=== PATIENT | male | born 1935 | race Caucasian/White ===

== ENCOUNTER 2017-01-01 06:17 | Inpatient (IN) ==
--- NOTE | 2016-12-31 20:14 | Discharge Summary ---
<MagraulMayra L - Last Filed: 12/31/16 20:12> Date of Encounter: 12/31/16 - Discharge Diagnosis (1) Shoulder pain, right Priority: Primary Status: Acute Qualifiers: Chronicity: chronic Qualified Code(s): M25.511 - Pain in right shoulder; G89.29 - Other chronic pain - Discharge Medications Home Medications: Aspirin 81 mg PO DAILY 04/06/16 [History] Levothyroxine [Synthroid] 25 mcg PO DAILY 04/06/16 [History] Pantoprazole Sodium [Protonix] 40 mg PO DAILY 04/06/16 [History] OxyCODONE Immed Rel [Roxicodone 5 MG] 5 - 10 mg PO Q6HR PRN #40 tablet 12/31/16 [Rx] Fluticasone Propionate Nasal [Flonase] 1 spr NS DAILY PRN 01/01/17 [History] Fluticasone Propionate [Flovent Hfa] 1 puff IH BID PRN 01/01/17 [History] Guaifenesin [Mucinex] 600 mg PO Q12H PRN 01/01/17 [History] Allergies/Adverse Reactions: Allergies No Known Allergies Allergy (Verified 01/01/17 07:37) Primary care physician: Laz Guadalupe - Patient Status Disposition: Home, Self-Care Condition: Good - Discharge Instructions Follow Up With: Yomaira Lockwood MD [Partnered Physician] - 01/09/17 10:10 am Kaleb Valle DO [Primary Care Provider] - - Hospital Course Hospital course: Mr. Dickey is a 81 year old male - Time Spent with Patient Total time spent providing and/or coordinating discharge services: <Bradford Kitchen - Last Filed: 01/02/17 06:30> Date of Encounter: 01/02/17 Time of Encounter: 06:30 - Discharge Diagnosis (1) Shoulder pain, right Priority: Primary Status: Acute Qualifiers: Chronicity: chronic Qualified Code(s): M25.511 - Pain in right shoulder; G89.29 - Other chronic pain (2) Hypertension Priority: Secondary Status: Chronic Qualifiers: Hypertension type: unspecified secondary hypertension Qualified Code(s): I15.9 - Secondary hypertension, unspecified; I15 - Secondary hypertension (3) Hyperlipidemia Priority: Secondary Status: Chronic Qualifiers: Hyperlipidemia type: unspecified Qualified Code(s): E78.5 - Hyperlipidemia , unspecified (4) COPD (chronic obstructive pulmonary disease) Priority: Secondary Status: Chronic Qualifiers: COPD type: unspecified COPD Qualified Code(s): J44.9 - Chronic obstructive pulmonary disease, unspecified (5) Thyroid disease Priority: Secondary Status: Chronic Primary care physician: Laz Guadalupe - Patient Status Functional capacity at discharge: independent ambulation Overall status at discharge: patient is progressing back to baseline - Hospital Course Hospital course: Mr. Dickey is a 81 year old male The patient had an uneventful postoperative course. They received antibiotics and physical therapy and were discharged in stable condition. There will follow -up in the office in 2 weeks. - Time Spent with Patient Total time spent providing and/or coordinating discharge services:
--- NOTE | 2017-01-01 06:36 | History & Physical Report ---
Date of Encounter: 01/01/17 Time of Encounter: 06:36 24 Hour HP Update - Instructions Instructions: If the History and Physical is less than 30 days old and was completed prior to A.M. admission and or procedure and has NOT been updated on calendar day of procedure please complete this update prior to performing procedure. - Update Patient reports changes in Medical Condition: No Changes in assessment/condition: No Changes in Medication: No Preop tests/diagnostics Reviewed: Yes Surgery Remains Indicated: Yes Consent for Planned Operative Procedure(s) Verified: Yes - Pre-Operative Checklist Preoperative Checklist Indicated: No Prophylactic Antibiotic Ordered: Yes Is VTE Prophylaxis Indicated?: Yes
[2017-01-01] MEDS ORDERED: Albuterol 2.5 MG/3 ML NEBULIZER IH ONE (06:40)
[2017-01-01] MEDS ORDERED: CeFAZolin Pre 2,000 MG/100 ML 2,000 MG/100 ML BAG IVPB ONE (06:40)
[2017-01-01] MEDS ORDERED: Lidocaine 1% 20 ML MDV ID ONE (06:40)
[2017-01-01] MEDS ORDERED: Ringers Solution, Lactated 1,000 ML IVC SCH (06:45)
[2017-01-01] MEDS ORDERED: Ondansetron 4 MG/2 ML VIAL ONE (07:04)
[2017-01-01] MEDS ORDERED: Lidocaine -MPF 2% 2 ML VIAL ONE (07:04)
[2017-01-01] MEDS ORDERED: *HR* Succinylcholine 200 MG/10 ML VIAL IVP ONE (07:04)
[2017-01-01] MEDS ORDERED: *HR* FentaNYL (PF) 100 MCG/2 ML VIAL ONE (07:04)
[2017-01-01] MEDS ORDERED: *HR* Phenylephrine 10 MG/ML VIAL ONE (07:04)
[2017-01-01] MEDS ORDERED: *HR* Midazolam HCl 2 MG/2 ML VIAL ONE (07:04)
[2017-01-01] MEDS ORDERED: Lidocaine -MPF 4% 5 ML AMPUL ONE (07:04)
[2017-01-01] MEDS ORDERED: Dexamethasone 4 MG/ML VIAL ONE (07:04)
[2017-01-01] MEDS ORDERED: *HR* Propofol 200 MG/20 ML VIAL IVP ONE (07:05)
--- NOTE | 2017-01-01 07:08 | Anesthesia Evaluation PreOp ---
Date of Encounter: 01/01/17 Time of Encounter: 07:00 - Past History Planned Operation: Rt Total Shoulder Revision Cardiac History: HTN, Hyperlipidemia Pulmonary History: COPD KENO ATTENDANT History: Denies Any Significant HX Other Medical History: Thyroid, GERD Anesthesia History: No Prior Anesthetic Complications Alcohol Use: none Drug use: none Medications and Allergies Aspirin 81 mg PO DAILY 04/06/16 [History] Levothyroxine [Synthroid] 25 mcg PO DAILY 04/06/16 [History] Pantoprazole Sodium [Protonix] 40 mg PO DAILY 04/06/16 [History] Ipratropium/Albuterol Sulfate [Combivent Respimat Inhal [place]] 2 gm IH Q4H 10/09 [History] OxyCODONE Immed Rel [Roxicodone 5 MG] 5 - 10 mg PO Q6HR PRN #40 tablet 12/31/16 [Rx] Allergies No Known Allergies Allergy (Verified 10/09/16 09:35) - Meds/Allergy Pre-op Review Medications Reviewed: Yes Allergies Reviewed: Yes Beta Blockers on Current Med List: No Anesthesia Results - Labs Laboratory Tests 09/30/15 12/18/16 12/18/16 15:23 09:54 09:54 Hgb 12.1 L Hct 39.4 Plt Count 156 Sodium 140 Potassium 4.3 BUN 12 POC Creatinine 0.90 - Imaging EKG: report reviewed (SR Rt BBB) Anesthesia Exam O2 Sat Height 1.83 m Height 1.83 m Height 1.83 m Weight 72.575 kg Weight 72.575 kg Weight 72.575 kg O2 Sat by Pulse Oximetry 99 O2 Sat by Pulse Oximetry 99 O2 Sat by Pulse Oximetry 99 Vital Signs Temp Pulse Resp BP Pulse Ox 97.8 F 73 20 141/79 99 01/01/17 06:41 01/01/17 06:41 01/01/17 06:41 01/01/17 06:41 01/01/17 06:41 Height: 6'0 Weight: 160 lbs NPO (# of Hours): MN Pain Scale: 0 - HEENT Pupil (Motor): Pupils equal, EOMI Mallampati: II Denture Type: Upper: Complete Oral Opening: Less than or equal to 3 - KENO ATTENDANT LOC: Oriented KENO ATTENDANT Motor: Normal RUE, Normal LUE, Normal RLE, Normal LLE, Normal Face KENO ATTENDANT Sensory: Normal: RUE, LUE, RLE, LLE, Face - Cardiac Rhythm: Regular Murmur: None JVD: No Carotid Bruit: No - Pulmonary Breath Sounds: bilateral Clear Respiratory Effort: Symmetrical Anesthesia Assess/Plan ASA Score: 3 (COPD HTN) Modified Lizeth Scale for Level of Consciousness: Cooperative, oriented, and tranquil Anesthetic Plan: General, Regional Monitoring Plan: Standard Monitors Recovery Plan: PACU (Discussed GA and RA, agrees to proceed)
[2017-01-01] MEDS ORDERED: Bupivacaine/Clonidine Syringe 1 EACH SYRINGE ONE (07:22)
[2017-01-01] MEDS ORDERED: *HR* Labetalol 100 MG/20 ML MDV IVP PRN (07:22)
[2017-01-01] MEDS ORDERED: *HR* HYDROmorphone (PF) 1 MG/ML SYRINGE IVP PRN ×2 (07:22→10:10)
[2017-01-01] MEDS ORDERED: *HR* Promethazine 25 MG/ML VIAL IVP PRN (07:22)
[2017-01-01] MEDS ORDERED: ROPIVACAINE HCL/PF 0.5% 30 ML VIAL ONE (07:23)
[2017-01-01] MEDS ORDERED: Tetracaine/PF 20 MG/2 ML AMPUL SPINA ONE (07:24)
[2017-01-01] MEDS ORDERED: Famotidine 20 MG/2 ML VIAL ONE (07:24)
--- NOTE | 2017-01-01 07:48 | Anesthesia Procedures ---
Date of Encounter: 01/01/17 Time of Encounter: 07:30 Procedures: Anesthesia - Nerve Block Procedure Date: 01/01/17 Time: 07:30 Allergies/Adv Reactions: NKDA Pre-op Diagnosis: RIGHT SHOULDER ARTHRITIS Surgical Procedure: RIGHT TOTAL SHOULDER Checklist: Correct Patient Identifier, Correct procedure, History checked Correct side: Right Blood Thinner: No Monitor Applied: EKG, BP, Pulse Oximetry Supplemental Oxygen via Nasal Cannula (L/min): 2 Sedation: Versed (mg): 1 Sedation: Fentanyl (mcg): 50 Indication: Post Op Analgesia Pre-op Neuro Deficits: No Block Type: Supraclavicular (SUPERFICIAL CERVICAL PLEXUS + INTERCOSTAL BRACHIAL ) Catheter placed: No Sterile Technique: Yes Ultrasound used: Yes Anatomy identified: Yes Visual spread of Local: Yes Neuro Stimulation: Yes Nerve Stimulator Range: 0.2 - 0.4 mA Blood on Needle Aspiration: No Smooth Injection of Local: Yes Pain with Injection of Local: No Prep: Chlorhexadine Needle: 22 x 50 mm Stimuplex Local: 0.25% Bupivicaine w/Clonidine 20 mcg/cc Volume (cc): 40 Number of Attempts: 1 Complications: None/effective block Vitals: Vital Signs - Last 8 Hours Temp Pulse Resp BP Pulse Ox 01/01/17 07:37 80 16 142/89 94 L 01/01/17 07:25 78 16 140/78 96 01/01/17 06:48 97.8 F 73 18 141/79 99 01/01/17 06:41 97.8 F 73 20 141/79 99 Intake and Output 12/31/16 12/31/16 01/01/17 15:59 23:59 07:59 Other: Weight 72.575 kg Patient Weight 01/01/17 23:59 Weight 72.575 kg Comments: PER DR. BLAIR REQUEST
--- NOTE | 2017-01-01 08:57 | Orthopedic Operative Note ---
Date of procedure: 01/01/17 Pre-op diagnosis: Painful right reverse total shoulder Post-op diagnosis: same Procedure: Procedure: Right revision Total Shoulder Replacment Reverse, Estimated blood loss: 100 cc Hardware:Arthrex medium glenoid baseplate, 2 4.5 screws. 1 6.5 screw, 39 lateral glenosphere, 39 central metaphysis, 6 constrained Madison Exam Under anesthesia: Normal motion and no instability Procedural Notes: Patient with scapular notching Madison disease. Operative procedure: The patient was brought to the operating room and placed on the operating room table. After general anesthesia was administered the operative shoulder was examined. Findings were noted. The patient was placed in the modified beachchair position. All pressure points were padded appropriately. And the head was stabilized in the neutral position. The operative extremity was prepped and draped in the sterile surgical fashion. The patient received IV antibiotics prior to skin incision. A standard deltopectoral approach was made to the operative shoulder. Incision was made through the old incision through the skin and subcutaneous tissue,hemo stasis was obtained with Bovie cautery. Using careful blunt dissection the cephalic vein was identified and mobilized medially. The deltopectoral interval was developed and the clavipectoral fascia was incised. The patient had no subscapularis, soft tissue was removed cultures were obtained. Shoulder was dislocated patient obvious poly-wear. The metaphyseal component was removed from the humeral side. Evaluation of the humeral stem revealed it to be well fixed. Attention then turned to the glenoid component. The glenosphere was removed followed by the screws followed by the baseplate. The position of the baseplate was lowered central pin was placed followed by the reamers. A medium glenoid baseplate was seated and secured with one 6.5 locking screw and 24.5 locking screws. DBX was placed behind the baseplate in the area of previous central screw fixation. The 39 lateralized sphere was seated and secured Trial reduction found excellent motion and stability with a 6 constrained Madison trial poly-was removed real Madison was seated and secured. The deep tissue was irrigated with pulse irrigation. The deltopectoral interval was closed with a running #1 PDS suture, subcutaneous tissue was irrigated and closed with 0 PDS suture, the skin was closed with Dermabond. The patient was placed in a sterile dressing, abduction brace and extubated. The patient was then transferred to the recovery room in stable condition. Anesthesia: GETA Surgeon: Bradford Kitchen Condition: stable Disposition: PACU
[2017-01-01 09:27] LABS: Hematocrit 34.9 % (37.5-50.1); Hemoglobin 10.7 g/dL (12.9-16.9)
[2017-01-01] MEDS ORDERED: Fluticasone Propionate Nasal 50 MCG/SPRAY BOTTLE NS PRN (10:10)
[2017-01-01] MEDS ORDERED: Albuterol Neb 1.25 MG/3 ML VIAL IH ONE (10:10)
[2017-01-01] MEDS ORDERED: Acetaminophen 325 MG TABLET PO PRN (10:10)
[2017-01-01] MEDS ORDERED: Temazepam 15 MG CAPSULE PO PRN (10:10)
[2017-01-01] MEDS ORDERED: *HR* OxyCODONE Immed Rel 5 MG TABLET PO PRN ×2 (10:10)
[2017-01-01] MEDS ORDERED: Beclomethasone 80mcg MDI IH SCH (10:10)
[2017-01-01] MEDS ORDERED: Ondansetron 4 MG/2 ML VIAL IVP PRN (10:10)
[2017-01-01] MEDS ORDERED: Naloxone 0.4 MG/ML INJ IVP PRN (10:10)
[2017-01-01] MEDS ORDERED: Sennosides 8.6 MG TABLET PO PRN (10:10)
[2017-01-01] MEDS ORDERED: MOM Conc 10 ML UD.LIQ PO PRN (10:10)
--- NOTE | 2017-01-01 10:10 | Anesthesia Evaluation Post Op ---
Date of Encounter: 01/01/17 Time of Encounter: 09:30 - Vital Signs Vital Signs: Vital Signs/O2 Sat/Glucose, Most Current Temp Pulse Resp BP Pulse Ox 01/01/17 09:38 98.3 F 82 16 128/78 98 01/01/17 09:28 72 16 123/69 97 01/01/17 09:18 71 18 116/72 98 01/01/17 09:13 70 16 102/67 100 01/01/17 09:08 98.0 F 67 16 121/69 100 01/01/17 08:00 71 16 117/69 100 01/01/17 07:49 69 16 130/72 99 01/01/17 07:37 80 16 142/89 94 L 01/01/17 07:25 78 16 140/78 96 01/01/17 06:48 97.8 F 73 18 141/79 99 01/01/17 06:41 97.8 F 73 20 141/79 99 - Lungs Lungs: Clear Ascult./Percussion - Airway Airway: Non-obstructed - Cardiovascular Regular Rate - Mental Status Mental Status: Alert & Oriented, Answers Appropriately - Pain Pain Scale: 0 - Nausea Vomiting Nausea Vomiting: Not Present - Hydration Hydration: Tolerates oral liquids - Discharge PostOp Status: Transfer Patient to floor
[2017-01-01] MEDS ORDERED: Beclomethasone 80mcg MDI IH PRN (10:42)
[2017-01-01] MEDS: Levothyroxine 25 MCG TABLET PO SCH (10:53)
[2017-01-01] MEDS: Aspirin 81 MG TAB.CHEW PO SCH (10:54)
[2017-01-01] MEDS: Ringers Solution, Lactated 1,000 ML IVC SCH (10:54)
[2017-01-01] MEDS: *HR* Enoxaparin 30 MG/0.3 ML SYRINGE SQ SCH (16:53)
[2017-01-01] MEDS: ceFAZolin 2,000 MG in D5% in Water 100 ML IVPB SCH (16:53)
[2017-01-01] MEDS ORDERED: *HR* Enoxaparin 30 MG/0.3 ML SYRINGE SQ SCH (18:00)
[2017-01-02] MEDS: ceFAZolin 2,000 MG in D5% in Water 100 ML IVPB SCH (00:15)
[2017-01-02] MEDS: Ringers Solution, Lactated 1,000 ML IVC SCH (02:32)
[2017-01-02 06:19] LABS: Hematocrit 38.3 % (37.5-50.1); Hemoglobin 11.7 g/dL (12.9-16.9)
[2017-01-02] MEDS: *HR* Enoxaparin 30 MG/0.3 ML SYRINGE SQ SCH (06:21)
--- NOTE | 2017-01-02 06:31 | Orthopedics Progress Note ---
Date of Encounter: 01/02/17 Time of Encounter: 06:31 - Assessment and Plan (1) Shoulder pain, right Current Visit: Yes Status: Acute Qualifiers: Chronicity: chronic Qualified Code(s): M25.511 - Pain in right shoulder; G89.29 - Other chronic pain (2) Hypertension Current Visit: Yes Status: Chronic Qualifiers: Hypertension type: unspecified secondary hypertension Qualified Code(s): I15.9 - Secondary hypertension, unspecified; I15 - Secondary hypertension (3) Hyperlipidemia Current Visit: Yes Status: Chronic Qualifiers: Hyperlipidemia type: unspecified Qualified Code(s): E78.5 - Hyperlipidemia , unspecified (4) COPD (chronic obstructive pulmonary disease) Current Visit: Yes Status: Chronic Qualifiers: COPD type: unspecified COPD Qualified Code(s): J44.9 - Chronic obstructive pulmonary disease, unspecified (5) Thyroid disease Current Visit: Yes Status: Chronic Subjective Interval history: Patient was seen this morning doing well without complaints. Afebrile vital signs stable. Operative extremity: Neurovascularly intact Dressing clean dry and intact Calves nontender Assessment and plan: Continue with postoperative care Hold therapy discharged today Objective Vital signs: Vital Signs Temp Pulse Resp BP Pulse Ox 01/02/17 03:50 98.2 F 72 17 123/72 01/02/17 00:13 98 F 75 17 129/74 98 01/01/17 19:47 97.9 F 74 16 125/74 95 01/01/17 15:09 97.8 F 84 16 104/68 95 01/01/17 14:54 80 16 106/65 96 01/01/17 13:03 97.5 F L 80 16 106/65 96 01/01/17 12:52 16 99 01/01/17 11:56 97.8 F 74 16 112/63 99 01/01/17 11:02 97.9 F 85 16 144/66 01/01/17 10:30 97.9 F 83 16 125/83 99 01/01/17 10:00 97.4 F L 82 16 125/78 99 01/01/17 09:38 98.3 F 82 16 128/78 98 01/01/17 09:28 72 16 123/69 97 01/01/17 09:18 71 18 116/72 98 01/01/17 09:13 70 16 102/67 100 01/01/17 09:08 98.0 F 67 16 121/69 100 01/01/17 08:00 71 16 117/69 100 01/01/17 07:49 69 16 130/72 99 01/01/17 07:37 80 16 142/89 94 L 01/01/17 07:25 78 16 140/78 96 01/01/17 06:48 97.8 F 73 18 141/79 99 01/01/17 06:41 97.8 F 73 20 141/79 99 Intake and Output 01/01/17 01/01/17 01/02/17 15:59 23:59 07:59 Intake Total 340 / 340 100 / 100 1100 / 1100 Output Total 1600 / 1600 600 / 600 475 / 475 Balance -1260 / -1260 -500 / -500 625 / 625 Intake: IV Fluids 100 / 100 100 / 100 1100 / 1100 Lactated Ringers 1,000 ML 1000 / 1000 @ 75 mls/hr IVC .[id number] BALTAZAR Rx#:[id number] Ancef 2,000 MG In 100 / 100 100 / 100 Dextrose 5% 100 ML @ 200 mls/hr IVPB Q8HR BALTAZAR Rx#: [id number] Ancef Premix 2,000 MG/100 100 / 100 ML 2,000 mg In 100 ml @ 200 mls/hr IVPB PREOP ONE Rx#:[id number] Oral 240 / 240 Output: Urine 1600 / 1600 600 / 600 475 / 475 Other: Meal Lunch Percent of Meal Consumed 100% - Labs CBC & BMP: 01/02/17 05:26 Labs: Abnormal lab results Hgb 11.7 g/dL (12.9-16.9) L 01/02/17 05:26 - VTE Documentation of Mechanical Device: Venous foot pump, device Consult Discharge Plan - Plan Referrals: Yomaira Lockwood MD [Partnered Physician] - 01/09/17 10:10 am Kaleb Valle DO [Primary Care Provider] -
[2017-01-02 07:22] VITALS: BP 134/71
[2017-01-02] MEDS: Levothyroxine 25 MCG TABLET PO SCH (09:29)
[2017-01-02] MEDS: Aspirin 81 MG TAB.CHEW PO SCH (09:29)
--- NOTE | 2017-01-02 15:30 | Electrocardiograph Report ---
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
== END 2017-01-02 10:32 | disposition home or self-care (01) | DRG 483 ==
LOC: SAMDAY 06:17 → 3NENU 10:05 → SUATTDRO 10:05
PROVIDERS: ADMIT Internal Medicine; ATTEND Internal Medicine

== ENCOUNTER 2019-10-07 21:50 | Inpatient (IN) ==
[2019-10-08] MEDS ORDERED: Naloxone 0.4 MG/ML INJ IVP PRN (00:46)
[2019-10-08 01:25] LABS: Basophils % 0.4 %; Hematocrit 38.1 % (37.5-50.1); Hemoglobin 12.5 g/dL (12.9-16.9); Immature Granulocytes % 0.3 % (0-4); Lymphocytes # 0.9 K/mcL (0.6-4.6); Lymphocytes % 12.5 %; Mean Corpuscular HGB Conc 32.8 g/dL (31.6-35.5); Mean Corpuscular Hemoglobin 31.6 pg (28.0-33.3); Mean Corpuscular Volume 96.5 fL (83.0-100.0); Mean Platelet Volume 10.4 fL (9.4-12.4); Monocytes % 14.2 %; Neutrophils # 5.2 K/mcL (1.6-8.9); Platelet Count 123 K/mcL (140-400); Red Blood Count 3.95 M/mcL (4.19-5.50); Red Cell Distribution Width 13.2 % (11.5-14.5); Segmented Neutrophils % 72.6 %; White Blood Count 7.1 K/mcL (4.3-11.1)
[2019-10-08 01:40] LABS: Phosphorous 2.4 mg/dL (2.7-4.5)
[2019-10-08 01:43] LABS: Alanine Aminotransferase 26 Units/L (7-52); Albumin 3.8 g/dL (3.5-5.7); Albumin/Globulin Ratio 1.4 (1.1-2.2); Alkaline Phosphatase 79 Units/L (34-104); Aspartate Amino Transferase 14 Units/L (13-39); BUN/Creatinine Ratio 24 (6-26); Bilirubin,Direct 0.4 mg/dL (0.0-0.2); Bilirubin,Indirect 0.8 mg/dL (0.0-1.0); Bilirubin,Total 1.2 mg/dL (0.3-1.0); Blood Urea Nitrogen 21 mg/dL (8-23); Calcium 8.6 mg/dL (8.6-10.3); Carbon Dioxide 28 mEq/L (23-29); Chloride 103 mEq/L (98-107); Globulin 2.7 g/dL (2.4-3.5); Glucose 151 mg/dL (70-105); Osmolality,Calculated 290 (280-300); Potassium 3.9 mEq/L (3.5-5.1); Sodium 137 mEq/L (136-145); Total Protein 6.5 g/dL (6.4-8.9); eGFR For African Americans > 60 (> 60); eGFR For Non-African Americans > 60 (> 60)
[2019-10-08 01:51] LABS: Troponin I 0.11 ng/mL (< 0.04)
[2019-10-08] MEDS ORDERED: Potassium Phosphate 44 MEQ in 0.9 % Sodium Chloride 250 ML IVPB ONE (01:53)
[2019-10-08] MEDS ORDERED: *HR* Metoprolol 5 MG/5 ML VIAL IVP PRN (02:00)
[2019-10-08 02:10] LABS: INR 1.5; Prothrombin Time 16.7 Seconds (9.4-12.1)
[2019-10-08] MEDS ORDERED: Fluticasone Propionate Nasal 50 MCG/SPRAY BOTTLE NS PRN (16:20)
[2019-10-08] MEDS: Apixaban 5 MG TABLET PO SCH (22:30)
[2019-10-09 02:03] LABS: Hematocrit 35.1 % (37.5-50.1); Hemoglobin 11.7 g/dL (12.9-16.9); Mean Corpuscular HGB Conc 33.3 g/dL (31.6-35.5); Mean Corpuscular Volume 95.9 fL (83.0-100.0); Mean Platelet Volume 10.5 fL (9.4-12.4); Platelet Count 117 K/mcL (140-400); Red Blood Count 3.66 M/mcL (4.19-5.50); White Blood Count 6.2 K/mcL (4.3-11.1)
[2019-10-09 02:23] LABS: BUN/Creatinine Ratio 24 (6-26); Blood Urea Nitrogen 15 mg/dL (8-23); Calcium 8.1 mg/dL (8.6-10.3); Carbon Dioxide 26 mEq/L (23-29); Chloride 107 mEq/L (98-107); Glucose 171 mg/dL (70-105); Osmolality,Calculated 293 (280-300); Potassium 3.6 mEq/L (3.5-5.1); Sodium 139 mEq/L (136-145); eGFR For African Americans > 60 (> 60); eGFR For Non-African Americans > 60 (> 60)
[2019-10-09 02:35] LABS: Thyroid Stimulating Hormone 0.885 mcIU/mL (0.340-5.600)
[2019-10-09] MEDS ORDERED: 0.9 % Sodium Chloride 500 ML IVC ONE (04:49)
[2019-10-09] MEDS: Tiotropium 18 MCG inhalation IH SCH (07:38)
[2019-10-09] MEDS ORDERED: NON-FORMULARY MEDICATION 1 EACH EACH (Umeclidinium Brm/Vilanterol Tr [Anoro Ellipta 62.5-2 IH SCH (09:00)
[2019-10-09] MEDS: Aspirin 81 MG TAB.CHEW PO SCH (09:17)
[2019-10-09] MEDS: Apixaban 5 MG TABLET PO SCH ×2 (09:18→22:34)
[2019-10-09] MEDS: Acetaminophen 325 MG TABLET PO PRN (17:42)
[2019-10-09] MEDS: Azithromycin 250 MG TABLET PO SCH (17:53)
[2019-10-09 18:00] LABS: Adenovirus Not Detected (Not Detect); Bordetella Pertussis Not Detected (Not Detect); Chlamydophila pneumoniae Not Detected (Not Detect); Coronavirus 229E Not Detected (Not Detect); Coronavirus HKU1 Not Detected (Not Detect); Coronavirus NL63 Not Detected (Not Detect); Coronavirus OC43 Not Detected (Not Detect); Human Metapneumovirus Not Detected (Not Detect); Human Rhinovirus/Enterovirus Not Detected (Not Detect); Influenza A Subtype 2009 H1 Not Detected (Not Detect); Influenza A Untypeable Not Detected (Not Detect); Influenza B Not Detected (Not Detect); Mycoplasma pneumoniae Not Detected (Not Detect); Parainfluenza Virus 1 Not Detected (Not Detect); Parainfluenza Virus 2 Not Detected (Not Detect); Parainfluenza Virus 3 Not Detected (Not Detect); Parainfluenza Virus 4 Not Detected (Not Detect); Respiratory Syncytial Virus Not Detected (Not Detect)
[2019-10-10 00:44] LABS: Bilirubin,Urine Small (Negative); Blood,Urine Negative (Negative); Clarity,Urine Clear (Clear); Color,Urine Dark Yellow (Yellow); Glucose,Urine (UA) 100 mg/dL (Normal); Ketones,Urine Negative (Negative); Leukocyte Esterase,Urine Trace (Negative); Nitrite,Urine Negative (Negative); Protein,Urine 100 mg/dL (Neg-Trace); Specific Gravity,Urine > 1.030 (1.010-1.025)
[2019-10-10 00:46] LABS: Bacteria,Urine None Seen per hpf (None-Few); Hyaline Casts,Urine Few per lpf (None-Few); RBC,Urine 0-3 per hpf (0-3); Squamous Epithelial Cell,Urine Many per lpf (None-Few)
[2019-10-10 01:13] LABS: Yeast,Urine Few per hpf (None Seen)
[2019-10-10 02:30] LABS: Adenovirus F 40/41 PCR Not detected (Not detect); Astrovirus PCR Not detected (Not detect); C.difficile Toxin A/B Gene PCR Not detected (Not detect); Campylobacter by PCR Not detected (Not detect); Cryptosporidium by PCR Not detected (Not detect); Cyclospora cayetanensis PCR Not detected (Not detect); E. coli O157 by PCR Not detected (Not detect); Entamoeba histolytica PCR Not detected (Not detect); Enteroaggregative E.coli(EAEC) Not detected (Not detect); Enteropathogenic E.coli(EPEC) Not detected (Not detect); Enterotoxigenic E.coli (ETEC) Not detected (Not detect); Giardia lamblia PCR Not detected (Not detect); Norovirus GI/GII PCR Not detected (Not detect); Plesiomonas shigelloides PCR Not detected (Not detect); Rotavirus A PCR Not detected (Not detect); Salmonella PCR Not detected (Not detect); Sapovirus PCR Not detected (Not detect); Shig/EnteroinvasiveE coli EIEC Not detected (Not detect); Shigalike tox-prod E coli STEC Not detected (Not detect); Vibrio PCR Not detected (Not detect); Vibrio cholerae PCR Not detected (Not detect); Yersinia enterocolitica PCR Not detected (Not detect)
[2019-10-10 05:21] LABS: Basophils # 0.1 K/mcL (0.0-0.2); Basophils % 0.7 %; Hematocrit 36.9 % (37.5-50.1); Hemoglobin 12.1 g/dL (12.9-16.9); Immature Granulocytes % 0.6 % (0-4); Lymphocytes # 0.6 K/mcL (0.6-4.6); Mean Corpuscular HGB Conc 32.8 g/dL (31.6-35.5); Mean Corpuscular Hemoglobin 31.5 pg (28.0-33.3); Mean Corpuscular Volume 96.1 fL (83.0-100.0); Mean Platelet Volume 10.6 fL (9.4-12.4); Monocytes # 0.8 K/mcL (0.0-1.3); Monocytes % 11.5 %; Neutrophils # 5.4 K/mcL (1.6-8.9); Platelet Count 138 K/mcL (140-400); Red Blood Count 3.84 M/mcL (4.19-5.50); Red Cell Distribution Width 13.2 % (11.5-14.5); Segmented Neutrophils % 78.2 %; White Blood Count 6.9 K/mcL (4.3-11.1)
[2019-10-10 05:39] LABS: Alanine Aminotransferase 44 Units/L (7-52); Albumin 3.2 g/dL (3.5-5.7); Albumin/Globulin Ratio 1.1 (1.1-2.2); Alkaline Phosphatase 88 Units/L (34-104); Aspartate Amino Transferase 19 Units/L (13-39); BUN/Creatinine Ratio 26 (6-26); Bilirubin,Total 1.8 mg/dL (0.3-1.0); Blood Urea Nitrogen 15 mg/dL (8-23); Calcium 8.2 mg/dL (8.6-10.3); Carbon Dioxide 24 mEq/L (23-29); Chloride 105 mEq/L (98-107); Glucose 206 mg/dL (70-105); Osmolality,Calculated 293 (280-300); Potassium 3.7 mEq/L (3.5-5.1); Sodium 138 mEq/L (136-145); Total Protein 6.2 g/dL (6.4-8.9); eGFR For African Americans > 60 (> 60); eGFR For Non-African Americans > 60 (> 60)
[2019-10-10] MEDS: Tiotropium 18 MCG inhalation IH SCH (07:54)
[2019-10-10] MEDS: Aspirin 81 MG TAB.CHEW PO SCH (08:55)
[2019-10-10] MEDS: Apixaban 5 MG TABLET PO SCH ×2 (08:55→22:09)
[2019-10-10] MEDS ORDERED: Isovue-370 500 ML BOTTLE IVP ONE (10:28)
[2019-10-10] MEDS: cefTRIAXone 2,000 MG in Water for inj. (sterile) 20 ML IVP SCH (12:03)
[2019-10-10] MEDS: Azithromycin 250 MG TABLET PO SCH (17:20)
[2019-10-10] MEDS ORDERED: Gadolinium Contrast Agent (WT Based) IV PRN (17:48)
[2019-10-10] MEDS: Acetaminophen 325 MG TABLET PO PRN (22:09)
[2019-10-11 02:25] LABS: Hematocrit 36.4 % (37.5-50.1); Hemoglobin 11.8 g/dL (12.9-16.9); Mean Corpuscular HGB Conc 32.4 g/dL (31.6-35.5); Mean Corpuscular Hemoglobin 31.5 pg (28.0-33.3); Mean Corpuscular Volume 97.1 fL (83.0-100.0); Mean Platelet Volume 10.8 fL (9.4-12.4); Platelet Count 172 K/mcL (140-400); Red Blood Count 3.75 M/mcL (4.19-5.50); Red Cell Distribution Width 13.1 % (11.5-14.5)
[2019-10-11 02:43] LABS: BUN/Creatinine Ratio 23 (6-26); Blood Urea Nitrogen 17 mg/dL (8-23); Calcium 8.4 mg/dL (8.6-10.3); Carbon Dioxide 27 mEq/L (23-29); Chloride 104 mEq/L (98-107); Glucose 189 mg/dL (70-105); Osmolality,Calculated 293 (280-300); Potassium 3.7 mEq/L (3.5-5.1); Sodium 138 mEq/L (136-145); eGFR For African Americans > 60 (> 60); eGFR For Non-African Americans > 60 (> 60)
[2019-10-11] MEDS: Aspirin 81 MG TAB.CHEW PO SCH (08:40)
[2019-10-11] MEDS: Diltiazem CD (24hr) 240 MG CAPSULE PO SCH (08:40)
[2019-10-11] MEDS: Apixaban 5 MG TABLET PO SCH ×2 (08:40→20:36)
[2019-10-11] MEDS: Tiotropium 18 MCG inhalation IH SCH (10:48)
[2019-10-11] MEDS: cefTRIAXone 2,000 MG in Water for inj. (sterile) 20 ML IVP SCH (12:38)
[2019-10-12] MEDS: Apixaban 5 MG TABLET PO SCH ×2 (07:36→22:34)
[2019-10-12] MEDS: Aspirin 81 MG TAB.CHEW PO SCH (07:36)
[2019-10-12] MEDS: Diltiazem CD (24hr) 240 MG CAPSULE PO SCH (07:37)
[2019-10-12] MEDS: Acetaminophen 325 MG TABLET PO PRN (07:50)
[2019-10-12] MEDS ORDERED: Diltiazem CD (24hr) 120 MG CAPSULE PO ONE ×2 (08:46→12:15)
[2019-10-12] MEDS ORDERED: Isovue-370 500 ML BOTTLE IVP ONE (08:53)
[2019-10-12] MEDS ORDERED: Diltiazem CD (24hr) 180 MG CAPSULE PO SCH (09:00)
[2019-10-12] MEDS: Tiotropium 18 MCG inhalation IH SCH (10:27)
[2019-10-12] MEDS ORDERED: Furosemide 20 MG/2 ML VIAL IVP ONE (11:07)
[2019-10-12] MEDS: cefTRIAXone 2,000 MG in Water for inj. (sterile) 20 ML IVP SCH (12:27)
[2019-10-12] MEDS: Sulfamethoxazole/Trimeth DS 1 EACH TABLET PO SCH (22:34)
[2019-10-13 02:29] LABS: BUN/Creatinine Ratio 26 (6-26); Blood Urea Nitrogen 18 mg/dL (8-23); Calcium 8.2 mg/dL (8.6-10.3); Carbon Dioxide 30 mEq/L (23-29); Chloride 100 mEq/L (98-107); Glucose 208 mg/dL (70-105); Osmolality,Calculated 294 (280-300); Potassium 3.3 mEq/L (3.5-5.1); Sodium 138 mEq/L (136-145); eGFR For African Americans > 60 (> 60); eGFR For Non-African Americans > 60 (> 60)
[2019-10-13] MEDS: Apixaban 5 MG TABLET PO SCH (07:40)
[2019-10-13] MEDS: Sulfamethoxazole/Trimeth DS 1 EACH TABLET PO SCH (07:41)
[2019-10-13] MEDS: Aspirin 81 MG TAB.CHEW PO SCH (07:41)
[2019-10-13] MEDS: Tiotropium 18 MCG inhalation IH SCH (07:41)
[2019-10-13] MEDS ORDERED: Furosemide 20 MG/2 ML VIAL IVP ONE (08:59)
[2019-10-13] MEDS ORDERED: Diltiazem CD (24hr) 180 MG CAPSULE PO SCH (09:00)
[2019-10-13 09:14] VITALS: BP 118/66
[2019-10-13] MEDS: Acetaminophen 325 MG TABLET PO PRN (10:12)
[2019-10-13] MEDS ORDERED: Finasteride 5 MG TABLET PO SCH (12:55)
== END 2019-10-13 17:08 | DRG 727 ==
LOC: 2NENU → SUATTDRO 23:29
PROVIDERS: ADMIT Family Medicine; ATTEND Internal Medicine

== ENCOUNTER 2022-09-18 00:11 | Inpatient (IN) ==
[2022-09-18] MEDS ORDERED: methylPREDNISolone 125 MG/2 ML VIAL IVP ONE (00:19)
[2022-09-18] MEDS ORDERED: Iopamidol - 370 500 ML MLS IVP ONE (00:19)
[2022-09-18] MEDS ORDERED: Ipratropium/Albuterol Neb 3 ML IH ONE (00:19)
[2022-09-18] MEDS ORDERED: cefTRIAXone 1,000 MG in 0.9 % Sodium Chloride 10 ML IVP ONE (00:20)
[2022-09-18 00:44] LABS: Basophils % 0.1 %; Eosinophils % 0.1 %; Hematocrit 35.5 % (37.5-50.1); Hemoglobin 11.7 g/dL (12.9-16.9); Immature Granulocytes % 0.6 % (0-4); Lymphocytes # 0.5 K/mcL (0.6-4.6); Lymphocytes % 4.8 %; Mean Corpuscular Hemoglobin 30.5 pg (28.0-33.3); Mean Corpuscular Volume 92.7 fL (83.0-100.0); Monocytes # 0.3 K/mcL (0.0-1.3); Monocytes % 3.3 %; Neutrophils # 8.6 K/mcL (1.6-8.9); Platelet Count 137 K/mcL (140-400); Red Blood Count 3.83 M/mcL (4.19-5.50); Red Cell Distribution Width 14.8 % (11.5-14.5); Segmented Neutrophils % 91.1 %; White Blood Count 9.5 K/mcL (4.3-11.1)
[2022-09-18 00:47] LABS: ABG Base Excess 4 mEq/L (-2 to 3); ABG HCO3 29 mEq/L (21-27); ABG Oxygen Saturation 90 % (95-98); ABG PCO2 46 mmHg (35-45); ABG PH 7.41 pH Units (7.32-7.45); ABG PO2 59 mmHg (85-104); ABG TCO2 31 mEq/L (20-26)
[2022-09-18 00:55] LABS: Alanine Aminotransferase 11 Units/L (7-52); Albumin 2.5 g/dL (3.5-5.7); Alkaline Phosphatase 98 Units/L (34-104); Aspartate Amino Transferase 8 Units/L (13-39); BUN/Creatinine Ratio 25 (6-26); Bilirubin,Direct 0.2 mg/dL (0.0-0.2); Bilirubin,Indirect 1.3 mg/dL (0.0-1.0); Bilirubin,Total 1.5 mg/dL (0.3-1.0); Blood Urea Nitrogen 9 mg/dL (8-23); Calcium 7.8 mg/dL (8.6-10.3); Carbon Dioxide 30 mEq/L (23-29); Chloride 104 mEq/L (98-107); Globulin 2.4 g/dL (2.4-3.5); Glucose 112 mg/dL (70-105); INR 2.3; Osmolality,Calculated 293 (280-300); Potassium 3.3 mEq/L (3.5-5.1); Prothrombin Time 25.5 Seconds (9.4-12.1); Sodium 142 mEq/L (136-145); Total Protein 4.9 g/dL (6.4-8.9); Troponin I 0.05 ng/mL (< 0.04)
[2022-09-18 00:57] LABS: Activated Partial Thrombo Time 32.7 Seconds (26.0-36.0)
[2022-09-18] MEDS ORDERED: Azithromycin 500 MG in 0.9 % Sodium Chloride 250 ML IVPB ONE (01:19)
[2022-09-18 03:33] LABS: Adenovirus Not Detected (Not Detect); Bordetella Pertussis Not Detected (Not Detect); Chlamydophila pneumoniae Not Detected (Not Detect); Coronavirus 229E Not Detected (Not Detect); Coronavirus HKU1 Not Detected (Not Detect); Coronavirus NL63 Not Detected (Not Detect); Coronavirus OC43 Not Detected (Not Detect); Human Metapneumovirus Not Detected (Not Detect); Human Rhinovirus/Enterovirus Not Detected (Not Detect); Influenza A Subtype 2009 H1 Not Detected (Not Detect); Influenza B Not Detected (Not Detect); Mycoplasma pneumoniae Not Detected (Not Detect); Parainfluenza Virus 1 Not Detected (Not Detect); Parainfluenza Virus 2 Not Detected (Not Detect); Parainfluenza Virus 3 Not Detected (Not Detect); Parainfluenza Virus 4 Not Detected (Not Detect); Respiratory Syncytial Virus Not Detected (Not Detect); SARS-CoV-2 Not Detected (Not Detect)
[2022-09-18] MEDS ORDERED: Naloxone 0.4 MG/ML INJ IVP PRN (04:33)
[2022-09-18] MEDS ORDERED: Ondansetron ODT 4 MG TAB.RAPDIS SL PRN (04:33)
[2022-09-18] MEDS ORDERED: Melatonin 3 MG TABLET PO PRN (04:33)
[2022-09-18] MEDS ORDERED: MethylPREDNISolone 40 MG/ML VIAL IVP SCH (06:00)
[2022-09-18] MEDS ORDERED: Dextrose Gel 15 GM/37.5 ML TUBE PO PRN ×2 (06:09)
[2022-09-18] MEDS ORDERED: *HR* Dextrose 50 % in Water (Syg) 50 ML SYRINGE IVP PRN (06:09)
[2022-09-18] MEDS ORDERED: D5% in Water 1,000 ML IVC PRN (06:09)
[2022-09-18] MEDS ORDERED: *HR* Metoprolol 5 MG/5 ML VIAL IVP PRN (06:12)
[2022-09-18] MEDS ORDERED: Piperacillin/Tazobactam 3.375 GM in 0.9 % Sodium Chloride Mini Bag 100 ML IVPB SCH ×2 (07:00→18:00)
[2022-09-18] MEDS: Ipratropium/Albuterol Neb 3 ML IH SCH ×3 (07:39→15:57)
[2022-09-18] MEDS ORDERED: Haloperidol Lactate 5 MG/ML VIAL IVP PRN (11:09)
[2022-09-18] MEDS ORDERED: *HR* LORazepam 2 MG/ML VIAL IVP PRN (11:10)
[2022-09-18] MEDS ORDERED: Glycopyrrolate 0.2 MG/ML VIAL IVP PRN (11:11)
[2022-09-18] MEDS ORDERED: *HR* HYDROmorphone (PF) 1 MG/ML SYRINGE IVP PRN (11:25)
[2022-09-18 11:29] VITALS: BP 96/63; PULSE 98; TEMP 96.9
[2022-09-18 11:33] VITALS: O2SAT 97
[2022-09-18] MEDS ORDERED: Insulin LISPRO 300 UNITS/3 ML VIAL SUBQ SCH (12:00)
[2022-09-18] MEDS ORDERED: *HR* HYDROmorphone (PF) 1 MG/ML SYRINGE IVP SCH (12:00)
== END 2022-09-18 16:20 | disposition expired | DRG 177 ==
LOC: EMEROOARM 00:11 → 2NENU 04:49 → SUATTDRO 04:49 → 2NENU 05:14
PROVIDERS: ADMIT Student in an Organized Health Care Education/Training Program; ATTEND Internal Medicine